=== PATIENT | female | born 2000 | race Caucasian/White ===

== ENCOUNTER 2021-09-11 04:13 | Emergency (ER) | payer BC ==
[2021-09-11] MEDS ORDERED: ACETAMINOPHEN 325 MG TABLET PO STA (04:38)
--- NOTE | 2021-09-11 04:41 | ED Physician Documentation ---
History of Present Illness - Stated complaint Stated Complaint: CHEST PX/VOMITING W BLOOD TRACE/N - Chief complaint Chief Complaint: Cardiac - History obtained from History obtained from: Patient - Additonal information Additional information: 21yF with pmh bipolar and anxiety p/w CP intermittent over the past 5 days. Pain is substernal, right-sided, nonradiating, intermittent, woke her from sleep jovel ddenly this evening and was associated with nonbloody nonbilious nausea and vomiting. When the patient wiped her mouth she thought she saw a small amount of blood. Patient says that she has been sick on and off for the past 3 weeks and had a negative Covid test 3 weeks ago. endorses subjective intermittent SOA and cough productive of sputum. denies fevers. She is unvaccinated against COVID-19. PERC negative. Review of Systems Ten Systems: 10 systems reviewed and negative Constitutional: reports: Chills, Myalgias, Fatigue, Other (weight gain). denies: Fever Cardiac: reports: Chest pain / pressure Respiratory: reports: Dyspnea, Cough GI: reports: Nausea, Vomiting. denies: Abdominal Pain PD PAST MEDICAL HISTORY - Present Medications Home Medications: Ambulatory Orders Medication Instructions Recorded Confirmed Divalproex Dr [Depjaradte Dr] 500 mg PO BID 09/11/21 09/11/21 Fluvoxamine Maleate 150 mg PO HS 09/11/21 09/11/21 - Allergies Allergies/Adverse Reactions: Allergies Allergy/AdvReac Type Severity Reaction Status Date / Time red dye AdvReac Unknown Verified 09/11/21 04:35 sertraline [From Zoloft] AdvReac Unknown Verified 09/11/21 04:35 PD ED PE NORMAL - Vitals Vital signs reviewed: Yes - General General: Alert and oriented X 3, No acute distress, Well developed/nourished - HEENT HEENT: Atraumatic, PERRL, EOMI - Neck Neck: Supple, no meningeal sign - Cardiac Cardiac: RRR - Respiratory Respiratory: No respiratory distress, Clear bilaterally - Abdomen Abdomen: Non tender, Non distended - Derm Derm: Normal color, Warm and dry - Extremities Extremities: No deformity, No edema - Neuro Neuro: Alert and oriented X 3 - Psych Psych: Normal mood, Normal affect Results - Vitals Vitals: Vital Signs - 24 hr 09/11/21 09/11/2121 04:15 04:47 05:03 Temperature 36.1 C L Heart Rate 77 76 Respiratory 16 16 16 Rate Blood Pressure 114/70 99/70 O2 Saturation 98 97 09/11/21 09/11/21 06:04 06:11 Temperature 36.2 C L Heart Rate 77 77 Respiratory 18 18 Rate Blood Pressure 110/69 110/69 O2 Saturation 98 98 Oxygen O2 Source Room air - EKG (time done) 0421 Rate: Rate (enter#) (64) Rhythm: Other (sinus with respiratory variation (sinus arrhythmia)) [place]: Normal Intervals: Normal [place] QRS: Normal Ischemia: Normal ST segments - Labs Labs: Laboratory Tests 09/11/21 04:45 Urine HCG, Qual NEGATIVE PD MEDICAL DECISION MAKING - ED course ED course: 21yF presents with atypical chest pain, normal ekg, normal physical exam. patient was offered a covid test and accepted. She is also concerned about unintentional weight gain recently (about 20 lbs) and accepted test which was negative. return precautions given. plan to f/u with PMD. Departure - Departure Disposition: 01 Home, Self Care Clinical Impression: Chest pain, Weight gain, Dizziness Condition: Good Instructions: ED Chest Pain NonCardiac Comments: You were seen in the emergency department for chest pain, nausea, dizziness, and weight gain. Your test was negative. A Covid test was sent which should result in 2 to 3 days. You should isolate at home until the result comes back. Please return to the emergency department if you have any new or worsening symptoms or other concerns. Plan to follow up with your primary doctor. Forms: Activity restrictions Discharge Date/Time: 09/11/21 06:12
[2021-09-11 05:03] LABS: HCG UR QUAL NEGATIVE
[2021-09-11 06:04] VITALS: BP 110/69
== END 2021-09-11 06:12 | disposition home or self-care (01) ==
LOC: ED 04:13
DX: R07.89 Other chest pain (principal); R11.2 Nausea with vomiting, unspecified; R42 Dizziness and giddiness; R63.5 Abnormal weight gain; Z32.02 Encounter for pregnancy test, result negative; Z20.822 Contact with and (suspected) exposure to COVID-19
CPT/HCPCS: 81025; 87635; 93005; 99283; 99284; A9270

== ENCOUNTER 2021-10-22 18:45 | Outpatient (CLI) | payer BC | END 2021-10-22 23:59 | disposition home or self-care (01) | LOC: LAB 18:45 | PROVIDERS: ATTEND Nurse Practitioner | DX: K52.9 Noninfective gastroenteritis and colitis, unspecified (principal) | CPT/HCPCS: 87086 ==